=== PATIENT | female | born 1950 | race Caucasian/White ===

== ENCOUNTER 2016-12-08 20:37 | Observation (INO) | payer SELFPAY ==
--- NOTE | 2016-12-08 21:23 | EDPHY ---
H & P Stated Complaint: cough and cold x 3 days Time Seen by Provider: 12/08/16 21:23 - Personal History Current Tetanus/Diphtheria Vaccine: Yes Current Tetanus Diphtheria and Acellular Pertussis (TDAP): Yes - Medical/Surgical History Hx Asthma: Yes Hx Chronic Respiratory Disease: No Hx Diabetes: No Hx Cardiac Disease: Yes Hx Renal Disease: No Hx Cirrhosis: No Hx Alcoholism: No Hx HIV/AIDS: No Hx Splenectomy or Spleen Trauma: No Other PMH: pneumonia x 3 , DM 2, - Social History Smoking Status: Never smoked Constitutional: Initial Vital Signs Temperature (C) 37.8 C 12/08/16 20:44 Heart Rate 104 H 12/08/16 20:44 Respiratory Rate 20 12/08/16 20:44 Blood Pressure 193/93 H 12/08/16 20:44 O2 Sat (%) 88 L 12/08/16 20:44 O2 Delivery Mode Nasal Cannula O2 (L/minute) 2 Allergies/Adverse Reactions: lisinopril/hctz Allergy (Uncoded 12/08/16 21:29) Home Medications: Medication Instructions Recorded Lisinopril 12/08/16 Medical Decision Making - Diagnostics Imaging Results: Imaging Impressions Chest X-Ray 12/08/16 21:16 Impression: Mild airways disease. No pneumonia. Imaging: I viewed and interpreted images myself ED Course/Re-evaluation: CHIEF COMPLAINT: Cough, hypoxemia HISTORY OF PRESENT ILLNESS: The patient is a 66 y/o female who is visiting from [place] and arrives with her friend for evaluation of progressive cold symptoms for the last 3 days. She has a history of hypertension, diabetes, and three prior episodes of pneumonia. Three days ago, she initially noticed rhinorrhea and then developed a cough. She checked her O2 with her friend's pulse oximeter and found it to be 84% on room air, so she decided to come into the ED. She denies fever, vomiting, diarrhea, abdominal pain, or other acute symptoms. She has not had a flu vaccination this season. REVIEW OF SYSTEMS: A 10 point review of systems was performed and is negative with the exception of the elements mentioned in the history of present illness. PHYSICAL EXAM: HR, BP, O2 Sat 88% on room air, RR. Temp noted General Appearance: Alert, well hydrated, appropriate, and non-toxic appearing. Head: Atraumatic without scalp tenderness or obvious injury Eyes: Pupils equal, round, reactive to light and accommodation, EOMI, no trauma , no injection. Ears: Clear bilaterally, no perforation, normal landmarks Nose: Atraumatic, no rhinorrhea, clear. Throat: There is no erythema or exudates, no lesions, normal tonsils, mucus membranes moist. Neck: Supple, nontender, no lymphadenopathy. Respiratory: No retractions, no distress, no wheezes, and no accessory muscle use. Lungs are clear to auscultation bilaterally. Cardiovascular: Regular rate and rhythm, no murmurs, rubs, or gallops. Good capillary refill all extremities. Gastrointestinal: Abdomen is soft, nontender, non-distended, no masses, no rebound, no guarding, no peritoneal signs. Musculoskeletal: Normal active ROM of all extremities, atraumatic. Neurological: Alert, appropriate, and interactive. Nonfocal neuro exam. Skin: No rashes, good turgor, no nodules on palpation. Past medical history: Hypertension, diabetes, pneumonia x3 Family history: Noncontributory Social history: Visiting from [place]. Friend at bedside. DIAGNOSTICS/PROCEDURES/CRITICAL CARE TIME: Chest x-ray: airways disease. DIFFERENTIAL DIAGNOSIS: The differential diagnosis for the patient's shortness of breath and hypoxemia included but was not limited to pneumonia, myocardial infarction, acute mountain sickness, high altitude pulmonary edema, congestive heart failure, and pulmonary embolus. MEDICAL DECISION MAKING: This is a 66 y/o female with a history of diabetes and three prior admissions for pneumonia who presents with a 3-day history of malaise and cough. She is 88 % on room air here, but her exam is otherwise unremarkable. Plan to treat empirically with Ceftriaxone and Zithromax and admit as we will be unable to procure home O2 for her at this time of night. IV established. Labs drawn. Flu swab and chest x-ray ordered. Spoke with hospitalist service. Dr. Steinberg accepts admission. - Data Points Laboratory Results: Laboratory Results 12/08/16 21:25 12/08/16 21:25 12/08/16 12/08/16 12/08/16 21:35 21:35 21:25 WBC RBC Hgb Hct MCV MCH MCHC RDW Plt Count MPV Neut % (Auto) Lymph % (Auto) [place] % (Auto) Eos % (Auto) Baso % (Auto) Nucleat RBC Rel Count Absolute Neuts (auto) Absolute Lymphs (auto) Absolute Monos (auto) Absolute Eos (auto) Absolute Basos (auto) Absolute Nucleated RBC Immature Gran % Immature Gran # PT INR APTT VBG Lactic Acid Sodium 136 mEq/L mEq/L (134-144) Potassium 4.0 mEq/L mEq/L (3.5-5.2) Chloride 102 mEq/L mEq/L (97-110) Carbon Dioxide 26 mEq/l mEq/l (22-31) Anion Gap 8 mEq/L mEq/L (8-16) BUN 8 mg/dL mg/dL (7-23) Creatinine 0.7 mg/dL mg/dL (0.6-1.0) Estimated GFR > 60 Glucose 205 mg/dL H mg/dL (70-100) Calcium 9.6 mg/dL mg/dL (8.5-10.4) Total Bilirubin 0.5 mg/dL mg/dL (0.1-1.4) Influenza A & B (PCR) Pending Influenza A,B Rapid Cancelled 12/08/16 12/08/16 12/08/16 21:25 21:25 21:25 WBC 9.65 10^3/uL H 10^3/uL (3.80-9.50) RBC 4.00 10^6/uL L 10^6/uL (4.18-5.33) Hgb 12.8 g/dL g/dL (12.6-16.3) Hct 39.4 % % (38.0-47.0) MCV 98.5 fL fL (81.5-99.8) MCH 32.0 pg pg (27.9-34.1) MCHC 32.5 g/dL g/dL (32.4-36.7) RDW 13.4 % % (11.5-15.2) Plt Count 241 10^3/uL 10^3/uL (150-400) MPV 10.4 fL fL (8.7-11.7) Neut % (Auto) 72.8 % % (39.3-74.2) Lymph % (Auto) 13.0 % L % (15.0-45.0) Harlan % (Auto) 11.7 % % (4.5-13.0) Eos % (Auto) 1.9 % % (0.6-7.6) Baso % (Auto) 0.3 % % (0.3-1.7) Nucleat RBC Rel Count 0.0 % % (0.0-0.2) Absolute Neuts (auto) 7.03 10^3/uL H 10^3/uL (1.70-6.50) Absolute Lymphs (auto) 1.25 10^3/uL 10^3/uL (1.00-3.00) Absolute Monos (auto) 1.13 10^3/uL H 10^3/uL (0.30-0.80) Absolute Eos (auto) 0.18 10^3/uL 10^3/uL (0.03-0.40) Absolute Basos (auto) 0.03 10^3/uL 10^3/uL (0.02-0.10) Absolute Nucleated RBC 0.00 10^3/uL 10^3/uL (0-0.01) Immature Gran % 0.3 % % (0.0-1.1) Immature Gran # 0.03 10^3/uL 10^3/uL (0.00-0.10) PT 13.0 SEC SEC (12.0-15.0) INR 0.99 (0.83-1.16) APTT 25.0 SEC SEC (23.0-38.0) VBG Lactic Acid 1.5 mmol/L mmol/L (0.7-2.1) Sodium Potassium Chloride Carbon Dioxide Anion Gap BUN Creatinine Estimated GFR Glucose Calcium Total Bilirubin Influenza A & B (PCR) Influenza A,B Rapid Medications Given: Discontinued Medications Ceftriaxone Sodium/Dextrose (Rocephin 1 Gm (Premix)) 50 mls @ 100 mls/hr IV EDNOW ONE PRN Reason: Protocol Stop: 12/08/16 22:07 Last Admin: 12/08/16 21:55 Dose: 50 mls Departure - Departure Disposition: [facility] Inpatient Acute Clinical Impression: Hypoxemia, Shortness of breath, Cough Condition: Fair Referrals: WILLIE SAGE [Other] - As per Instructions Report Scribed for: Martin Zacarias Report Scribed by: Holly Otto Date of Report: 12/08/16 Time of Report: 21:39
[2016-12-08 21:35] LABS: % IMMATURE GRANULYOCYTES 0.3 % (0.0-1.1); ABSOLUTE IMMATURE GRANULOCYTES 0.03 10^3/uL (0.00-0.10); ADD DIFF? NO; ADD MORPH? NO; ADD SCAN? NO; ATYPICAL LYMPHOCYTE FLAG 0 (0-99); FRAGMENT RBC FLAG 0 (0-99); HEMATOCRIT 39.4 % (38.0-47.0); HEMOGLOBIN 12.8 g/dL (12.6-16.3); LEFT SHIFT FLG 0 (0-99); LIPEMIA HEMOLYSIS FLAG 80 (0-99); MEAN CELL HEMOGLOBIN CONCENTR. 32.5 g/dL (32.4-36.7); MEAN CELL VOLUME 98.5 fL (81.5-99.8); MEAN PLATELET VOLUME 10.4 fL (8.7-11.7); PLATELET CLUMPS FLAG 0 (0-99); PLATELET COUNT 241 10^3/uL (150-400); RED CELL DISTRIBUTION WIDTH 13.4 % (11.5-15.2)
[2016-12-08] MEDS ORDERED: AZITHROMYCIN IV 500 MG in D5W 250 ML IV ONE (21:38)
[2016-12-08 21:44] LABS: INR 0.99 (0.83-1.16)
[2016-12-08 21:46] LABS: ANION GAP 8 mEq/L (8-16); BILIRUBIN,TOTAL 0.5 mg/dL (0.1-1.4); CALCIUM 9.6 mg/dL (8.5-10.4); CARBON DIOXIDE 26 mEq/l (22-31); CHLORIDE 102 mEq/L (97-110); CREATININE 0.7 mg/dL (0.6-1.0); GLOMERULAR FILTRATION RATE > 60; GLUCOSE 205 mg/dL (70-100); SODIUM 136 mEq/L (134-144)
[2016-12-08] MEDS ORDERED: ONDANSETRON DISINTEGRATING 4 MG TAB PO PRN ×2 (22:28→22:34)
[2016-12-08] MEDS ORDERED: ALBUTEROL 3 ML DEYVIAL IH PRN ×2 (22:28→22:34)
[2016-12-08] MEDS ORDERED: ONDANSETRON 4 MG/2 ML VIAL IVP PRN ×2 (22:28→22:34)
[2016-12-08] MEDS ORDERED: ACETAMINOPHEN 325 MG TAB PO PRN ×2 (22:28→22:34)
--- NOTE | 2016-12-08 23:31 | PDGENHP ---
History and Physical - Chief Complaint Hypoxia - History of Present Illness 66 yo F w/ HTN and DM presents with several days of cold symptoms. She lives in [place] and is visiting family in [place]. She has been having cough, runny nose , sore throat, and body aches for 3-4 days. She decided to check her O2 sat with her sister's pulse ox and noted an O2 sat of 84%, so she came to the ED. She denies prior hx of pulmonary disease or chronic O2 use, but she has had several bouts of pneumonia in the past. In the ED she was noted to be persistently hypoxic, requiring 2 L/min O2 via NC to maintain O2 sats. CXR shows only bronchitis. History Information - Allergies/Home Medication List Allergies/Adverse Reactions: lisinopril/hctz Allergy (Uncoded 12/08/16 21:29) Home Medications: Lisinopril 12/08/16 [Last Taken Unknown] I have personally reviewed and updated: family history, medical history - Past Medical History diabetes type 2, hypertension - Family History Positive for: CAD - Social History Smoking Status: Never smoked Drug Use: None Review of Systems Review of Systems: ROS: 10pt was reviewed & negative except for what was stated in HPI & below Physical Exam Physical Exam: Temp Pulse Resp BP Pulse Ox 37.6 C 90 18 151/103 H 95 12/08/16 22:45 12/08/16 22:45 12/08/16 22:45 12/08/16 22:45 12/08/16 22:45 O2 (L/minute) 2 Constitutional: no apparent distress, obese Eyes: PERRL, EOMI Ears, Nose, Mouth, Throat: moist mucous membranes, no oral mucosal ulcers Cardiovascular: regular rate and rhythym, no murmur, rub, or gallop Respiratory: no respiratory distress, inspiratory crackles (Bibasilar) Gastrointestinal: normoactive bowel sounds, soft, non-tender abdomen Skin: warm, normal color Musculoskeletal: full muscle strength, no muscle tenderness Neurologic: AAOx3, CN II-XII Intact Psychiatric: interacting appropriately, not anxious Lab Data & Imaging Review 12/08/16 21:25 12/08/16 21:25 WBC 9.65 10^3/uL (3.80-9.50) H 12/08/16 21:25 RBC 4.00 10^6/uL (4.18-5.33) L 12/08/16 21:25 Hgb 12.8 g/dL (12.6-16.3) 12/08/16 21:25 Hct 39.4 % (38.0-47.0) 12/08/16 21:25 MCV 98.5 fL (81.5-99.8) 12/08/16 21:25 MCH 32.0 pg (27.9-34.1) 12/08/16 21: MCHC 32.5 g/dL (32.4-36.7) 12/08/16:25 RDW 13.4 % (11.5-15.2) 12/08/16: Plt Count 241 10^3/uL (150-400) 12/08/16: MPV 10.4 fL (8.7-11.7) 12/08/16 21:25 Neut % (Auto) 72.8 % (39.3-74.2) 12/08/16 21: Lymph % (Auto) 13.0 % (15.0-45.0) L 12/08/16:25 [place] % (Auto) 11.7 % (4.5-13.0) 12/08/16:25 Eos % (Auto) 1.9 % (0.6-7.6) 12/08/16: Baso % (Auto) 0.3 % (0.3-1.7) 12/08/16: Nucleat RBC Rel Count 0.0 % (0.0-0.2) 12/08/16 21: Absolute Neuts (auto) 7.03 10^3/uL (1.70-6.50) H 12/08/16 21:25 Absolute Lymphs (auto) 1.25 10^3/uL (1.00-3.00) 12/08/16 21: Absolute Monos (auto) 1.13 10^3/uL (0.30-0.80) H 12/08/16 21:25 Absolute Eos (auto) 0.18 10^3/uL (0.03-0.40) 12/08/16 21:25 Absolute Basos (auto) 0.03 10^3/uL (0.02-0.10) 12/08/16 21:25 Absolute Nucleated RBC 0.00 10^3/uL (0-0.01) 12/08/16 21:25 Immature Gran % 0.3 % (0.0-1.1) 12/08/16 21:25 Immature Gran # 0.03 10^3/uL (0.00-0.10) 12/08/16 21:25 PT 13.0 SEC (12.0-15.0) 12/08/16 21:25 INR 0.99 (0.83-1.16) 12/08/16 21:25 APTT 25.0 SEC (23.0-38.0) 12/08/16 21:25 VBG Lactic Acid 1.5 mmol/L (0.7-2.1) 12/08/16 21:25 Sodium 136 mEq/L (134-144) 12/08/16 21:25 Potassium 4.0 mEq/L (3.5-5.2) 12/08/16 21:25 Chloride 102 mEq/L (97-110) 12/08/16 21:25 Carbon Dioxide 26 mEq/l (22-31) 12/08/16 21:25 Anion Gap 8 mEq/L (8-16) 12/08/16 21:25 BUN 8 mg/dL (7-23) 12/08/16 21:25 Creatinine 0.7 mg/dL (0.6-1.0) 12/08/16 21:25 Estimated GFR > 60 12/08/16 21:25 Glucose 205 mg/dL (70-100) H 12/08/16 21:25 Calcium 9.6 mg/dL (8.5-10.4) 12/08/16 21:25 Total Bilirubin 0.5 mg/dL (0.1-1.4) 12/08/16 21:25 Influenza A & B (PCR) NEGATIVE FOR FLU (NEGATIVE) 12/08/16 21:35 Influenza A,B Rapid Cancelled 12/08/16 21:35 Imaging Review: CXR w/ peribronchial cuffing, minimally enlarged heart. Visualized and Interpreted Chest x-ray results: Yes Chest X-Ray results: no infiltrate Assessment & Plan Assessment: 66 yo F w/ DM and HTN presenting w/ AHRF 2/2 pneumonia, unclear if bacterial or viral. Plan: 1. AHRF - Constellation of symptoms suggestive of viral etiology (rhinorrhea, fatigue, body aches, dry cough). Hypoxia is mild requiring 2 L/min O2. Although undiagnosed, I suspect she may have an element of diastolic dysfunction as well , which could be contributing along w/ MICHEAL/OHS and elevation. - Continue CAP coverage for now with CTX/Azithro - Will check procalcitonin - Albuterol PRN - May need home O2 eval if not improving 2. DM - Takes oral medication only at home, will order SSI here. 3. HTN - Takes lisinopril as an outpatient. Diet - Regular Code - Full Ppx - LMWH Dispo - Admit to observation status
[2016-12-09 05:28] LABS: % IMMATURE GRANULYOCYTES 0.5 % (0.0-1.1); ABSOLUTE IMMATURE GRANULOCYTES 0.04 10^3/uL (0.00-0.10); ADD DIFF? NO; ADD MORPH? NO; ADD SCAN? NO; ATYPICAL LYMPHOCYTE FLAG 10 (0-99); FRAGMENT RBC FLAG 0 (0-99); HEMATOCRIT 37.1 % (38.0-47.0); HEMOGLOBIN 12.1 g/dL (12.6-16.3); LEFT SHIFT FLG 10 (0-99); LIPEMIA HEMOLYSIS FLAG 80 (0-99); MEAN CELL HEMOGLOBIN 31.9 pg (27.9-34.1); MEAN CELL HEMOGLOBIN CONCENTR. 32.6 g/dL (32.4-36.7); MEAN CELL VOLUME 97.9 fL (81.5-99.8); MEAN PLATELET VOLUME 10.8 fL (8.7-11.7); PLATELET CLUMPS FLAG 0 (0-99); PLATELET COUNT 229 10^3/uL (150-400); RED BLOOD CELL COUNT 3.79 10^6/uL (4.18-5.33); RED CELL DISTRIBUTION WIDTH 13.3 % (11.5-15.2)
[2016-12-09 05:29] LABS: ANION GAP 7 mEq/L (8-16); CALCIUM 9.4 mg/dL (8.5-10.4); CARBON DIOXIDE 27 mEq/l (22-31); CHLORIDE 104 mEq/L (97-110); CREATININE 0.6 mg/dL (0.6-1.0); GLOMERULAR FILTRATION RATE > 60; GLUCOSE 130 mg/dL (70-100); POTASSIUM 3.8 mEq/L (3.5-5.2); SODIUM 138 mEq/L (134-144)
[2016-12-09] MEDS ORDERED: NAPROXEN SODIUM 220 MG TAB PO PRN (08:19)
[2016-12-09] MEDS ORDERED: ENOXAPARIN 40 MG/0.4 ML SYR SC SCH ×2 (09:00)
[2016-12-09] MEDS ORDERED: TROSPIUM CHLORIDE 20 MG PO SCH (09:00)
[2016-12-09] MEDS ORDERED: Trospium Chloride [Sanctura] 20 MG PO SCH (09:00)
[2016-12-09] MEDS ORDERED: NON-FORMULARY NEW DRUG (Citalopram Hydrobromide [Celexa] 40 MG) PO SCH (09:00)
[2016-12-09] MEDS ORDERED: CITALOPRAM 20 MG TAB PO SCH (09:00)
[2016-12-09] MEDS ORDERED: GLIMEPIRIDE 2 MG TAB PO SCH (09:00)
--- NOTE | 2016-12-09 10:37 | ASMTCMCOM ---
CM Note CM Note Notes: 12/09/2016 Case Management Note: Met w/pt. Pt has a home in [place] and a second home in [facility]. Pt frequently travels between [place] and [place]. Pt plans to return to [place] tomorrow afternoon. Pt expressed concerns about discharged with possible O2 needs. Pt is currently on room air. Referred pt to respiratory therapy if O2 is required at d/c. Pt is retired and single. No case management d/c needs identified d/t pt activity age and activity levels prior to admission. Case Management d/c poc: Home Independent with follow up as directed by . Date Signed: 12/09/2016 10:37 AM Electronically Signed By:Randee Lawton RN
[2016-12-09] MEDS ORDERED: predniSONE 20 MG TAB PO SCH (10:45)
--- NOTE | 2016-12-09 10:47 | PDHOMEO2F ---
Home Oxygen Face to Face Home Orders: I certify that a physician or a nurse practitioner or physician's data analysis assistant has had a [id number] encounter with this patient on the date of this order due to the diagnosis listed, which relates to the primary reason the patient requires home oxygen. Alternative treatments have been tried, or considered, and deemed ineffective. It is anticipated that supplemental oxygen will result in improvement with treatment. Home oxygen qualifying diagnosis: Acute reactive airway exacerbation Home oxygen secondary diagnosis: Hypoxia SpO2 on room air (%): 86 Frequency of home oxygen needed: continuous Home oxygen liters per minute: 2 Home oxygen delivery device: nasal cannula Concentrator: Yes E-tanks for mobility and back up: Yes If ordering portable O2, is the patient mobile in the home?: Yes I certify that, based on these findings, the home oxygen is medically necessary for this patient for the following length of time. Length of time home oxygen needed: 1 month
[2016-12-09] MEDS ORDERED: IPRATROPIUM/ALBUTEROL 3 ML DEYVIAL IH SCH (11:00)
[2016-12-09 11:35] VITALS: BP 134/82; PULSE 92; TEMP 98.5
[2016-12-09 11:44] VITALS: RESP 14; O2SAT 96
--- NOTE | 2016-12-09 14:12 | PDDCSUM ---
Discharge Summary Discharge Summary: DISCHARGE SUMMARY FOLLOW-UP ITEMS: Reassess need for home oxygen DATE OF ADMISSION: 12/08/2016 DATE OF DISCHARGE: 12/09/2016 DISCHARGE DIAGNOSES: 1. Acute reactive airway exacerbation 2. Suspected URI CONSULTATIONS: None PROCEDURES / IMAGING: Chest x-ray demonstrating no focal pneumonia CHIEF COMPLAINT: Acute shortness of breath and cough SUBJECTIVE: Patient is feeling well at time of discharge PHYSICAL EXAM ON DISCHARGE: Systolic blood pressure is 130-150, heart rate in 90, satting 86% on room air, last fever was at 9:00 p.m. on December 08 at 38.3 degrees C, there is a faint expiratory wheeze bilaterally without any bronchial breath sounds, no inspiratory crackles, marginally reduced air movement on expiration, heart rhythm is regular LABS ON DISCHARGE: Procalcitonin level 0.06, flu PCR negative, creatinine 0.6, white blood count 8100, hemoglobin 12.1, D-dimer negative HOSPITAL COURSE BY PROBLEM: The patient presented with acute shortness of breath cough and other viral symptoms, most likely secondary to a URI, triggering acute reactive airway exacerbation. She was treated supportively with prednisone, duo nebs, antibiotics, and antitussives. She was ruled out for pneumonia with chest x- ray and was ruled out for pulmonary embolism with a negative D-dimer. Her procalcitonin level was normal, arguing against any bacterial insult. She did remain hypoxic on room air challenge at discharge, and does warrant home supplemental oxygen, which was ordered prior to discharge. The patient is requesting to be discharged home at this time, and home oxygen as well as for subsequent days of steroids, albuterol inhaler as needed, antitussives, azithromycin, have all been ordered. DISCHARGE MEDICATIONS: Please see official discharge medication reconciliation sheet in chart , azithromycin 500 x 4 days, prednisone 40 x 4 days, albuterol inhaler as needed, guaifenesin and codeine as needed, continue all other home medications. DISCHARGE INSTRUCTIONS: Please follow up with primary care provider in [place] after returning home tomorrow.
[2016-12-09] MEDS ORDERED: PRAVASTATIN SODIUM 20 MG TAB PO SCH (21:00)
[2016-12-09] MEDS ORDERED: cefTRIAXone 2 GM in D5W 50 ML IV SCH (21:00)
[2016-12-09] MEDS ORDERED: ATENOLOL 50 MG TAB PO SCH (21:00)
[2016-12-09] MEDS ORDERED: LISINOPRIL 40 MG TAB PO SCH (21:00)
[2016-12-09] MEDS ORDERED: AZITHROMYCIN 250 MG TAB PO SCH (21:00)
== END 2016-12-09 14:27 | disposition home or self-care (01) ==
LOC: F3E 22:38
PROVIDERS: ADMIT Student in an Organized Health Care Education/Training Program; ATTEND Internal Medicine
DX: J45.901 Unspecified asthma with (acute) exacerbation (principal); E11.9 Type 2 diabetes mellitus without complications; Z87.01 Personal history of pneumonia (recurrent); I10 Essential (primary) hypertension
CPT/HCPCS: 96365; G0378; J0456; J0696; J1650